=== PATIENT | female | born 1995 | race Two or more races ===

== ENCOUNTER 2018-02-20 06:07 | Emergency (ER) | payer BC, MEDICAID ==
[~2018-02-20] VITALS: Ht 165.1 cm; Wt 108.9 kg
[2018-02-20 06:15] VITALS: BP 147/89
[2018-02-20] MEDS ORDERED: KETOROLAC TROMETHAMINE INJ 30 MG/ML VIAL ONE (06:29)
[2018-02-20] MEDS: KETOROLAC TROMETHAMINE INJ 30 MG/ML VIAL IM ONE (06:34)
== END 2018-02-20 06:45 | disposition home or self-care (01) ==
LOC: ER 06:14
DX: M54.6 Pain in thoracic spine (principal)
CPT/HCPCS: A4606; J1885; Z7610

== ENCOUNTER 2018-12-14 10:41 | Emergency (ER) | payer SELFPAY ==
[~2018-12-14] VITALS: Ht 170.2 cm; Wt 126.6 kg
[2018-12-14 10:56] VITALS: BP 148/80
[2018-12-14] MEDS ORDERED: IBUPROFEN 600 MG TABLET PO ONE ×2 (11:00)
== END 2018-12-14 12:02 | disposition home or self-care (01) ==
LOC: ER 10:41
DX: S99.812A Other specified injuries of left ankle, initial encounter (principal); X50.1XXA Overexertion from prolonged static or awkward postures, initial encounter; Y93.89 Activity, other specified; Y92.89 Other specified places as the place of occurrence of the external cause; Y99.8 Other external cause status
CPT/HCPCS: 73610; 99283; A4606

== ENCOUNTER 2019-08-09 19:14 | Emergency (ER) | payer BC ==
[~2019-08-09] VITALS: Ht 157.5 cm; Wt 123.8 kg
--- NOTE | 2019-08-09 19:40 | NUR ---
PT BIBSELF C/O UPPER BACK PAIN RADIATING DOWN SPINE X3HR - TRAUMA, TO ER BED 3 [facility]
[2019-08-09] MEDS ORDERED: KETOROLAC TROMETHAMINE INJ 60 MG/2 ML VIAL IM ONE ×2 (19:42→20:00)
[2019-08-09] MEDS ORDERED: CYCLOBENZAPRINE 10 MG TABLET ONE (19:42)
[2019-08-09] MEDS ORDERED: CYCLOBENZAPRINE 10 MG TABLET PO ONE (20:00)
--- NOTE | 2019-08-09 20:10 | NUR ---
Patient discharged to home in stable condition. Written and verbal after care instructions given. Patient verbalizes understanding of instruction.
[2019-08-09 20:11] VITALS: BP 142/82
== END 2019-08-09 20:14 | disposition home or self-care (01) ==
LOC: ER 19:16
DX: M54.6 Pain in thoracic spine (principal)
CPT/HCPCS: 96372; 99283; J1885